=== PATIENT | female | born 1980 ===

== ENCOUNTER 2017-09-23 16:27 | Emergency (ER) | payer SELFPAY ==
[2017-09-23 16:28] VITALS: BMI 30.2
[2017-09-23 16:41] VITALS: O2SAT 97
--- NOTE | 2017-09-23 17:09 | C.PDOC ---
History Of Present Illness 37 year old female presents to ED for evaluation of uri symptoms x 1 day. Pt complaints of non-productive cough, rhinorrhea, nasal congestion, and myalgia. Pt denies any chest pain, shortness of breath, n/v/d, abdominal pain, or any other associated symptoms at this time. Time Seen by Provider: 09/23/17 16:47 Chief Complaint (Nursing): Chest Pain History Per: Patient History/Exam Limitations: no limitations Onset/Duration Of Symptoms: Hrs Current Symptoms Are (Timing): Still Present Past Medical History Reviewed: Historical Data, Nursing Documentation, Vital Signs Vital Signs: Last Vital Signs Temp 99.5 F 09/23/17 16:39 Pulse 96 H 09/23/17 16:39 Resp 20 09/23/17 16:39 BP 129/85 09/23/17 16:39 Pulse Ox 97 09/23/17 18:28 - [facility] Procedures MONITORING NOS (11/08/14) INJECT/INFUSE NEC (11/16/13) LOW CERVICAL (11/08/14) Family History: States: Unknown Family Hx - Social History Hx Alcohol Use: No Hx Substance Use: No - Immunization History Hx Tetanus Toxoid Vaccination: No Hx Influenza Vaccination: No Hx Pneumococcal Vaccination: No Review Of Systems Except As Marked, All Systems Reviewed And Found Negative. Constitutional: Positive for: Other (myalgia). Negative for: Fever, Chills ENT: Positive for: Nose Discharge, Nose Congestion Cardiovascular: Negative for: Chest Pain, Palpitations Respiratory: Positive for: Cough. Negative for: Shortness of Breath Gastrointestinal: Negative for: Nausea, Vomiting, Abdominal Pain, Diarrhea Physical Exam - Physical Exam Appears: Non-toxic, No Acute Distress Skin: Normal Color, Warm, Dry Head: Atraumatic, Normacephalic Eye(s): bilateral: Normal Inspection Ear(s): Bilateral: Normal Nose: Discharge (clear rhinorrhea) Oral Mucosa: Moist Throat: Normal, No Erythema, No Exudate Neck: Normal ROM, Supple Chest: Symmetrical Cardiovascular: Rhythm Regular, No Murmur Respiratory: Normal Breath Sounds, No Rales, No Rhonchi, No Wheezing Gastrointestinal/Abdominal: Soft, No Tenderness Extremity: Normal ROM Neurological/Psych: Oriented x3, Normal Speech ED Course And Treatment O2 Sat by Pulse Oximetry: 97 (RA) Pulse Ox Interpretation: Normal Medical Decision Making Medical Decision Making: EKG, CXR, influenza AB ordered and reviewed. EKG shows NSR at 86bpm with normal intervals and no ST changes. Cxray negative. Patient is positive for influenza. She is well appearing with normal vitals. Pt was given Toradol and Tamiflu. Disposition - Disposition Referrals: [facility] at [facility] [Outside] Disposition: HOME/ ROUTINE Disposition Time: 18:04 Condition: GOOD Additional Instructions: Copious fluids. Motrin or tylenol for pain. Return to ED if condition worsens. Take tamiflu to decrease duration of symptoms. Follow-up with PMD within 2 days Prescriptions: Oseltamivir [Tamiflu] 75 mg PO BID #10 cap Instructions: Oseltamivir (By mouth), Influenza (ED) Forms: [facility] (Faroese), Work Excuse Print Language: PORTUGUESE - Clinical Impression Clinical Impression: Influenza A - Scribe Statement The provider has reviewed the documentation as recorded by the Chanelibe Jennifer Huber All medical record entries made by the Scribe were at my direction and personally dictated by me. I have reviewed the chart and agree that the record accurately reflects my personal performance of the history, physical exam, medical decision making, and the department course for this patient. I have also personally directed, reviewed, and agree with the discharge instructions and disposition.
--- NOTE | 2017-09-23 18:17 | RAD ---
HISTORY: chest pain, congestion COMPARISON: No prior. TECHNIQUE: Chest PA and lateral FINDINGS: LUNGS: No active pulmonary disease. PLEURA: No significant pleural effusion identified. No pneumothorax apparent. CARDIOVASCULAR: Normal. OSSEOUS STRUCTURES: No significant abnormalities. VISUALIZED UPPER ABDOMEN: Normal. OTHER FINDINGS: None. IMPRESSION: No active disease.
[2017-09-23 18:35] VITALS: BP 114/83; PULSE 63; RESP 18; TEMP 98.8
--- NOTE | 2017-09-26 22:22 | CARD ---
APPROVED REPORT EKG Measurement Heart [id number] <Conclusion> Normal sinus rhythm Normal ECG
== END 2017-09-23 18:48 | disposition home or self-care (01) ==
LOC: C.ER 16:27
DX: J09.X2 Influenza due to identified novel influenza A virus with other respiratory manifestations (principal)
CPT/HCPCS: 71020; 87804; 93005; 96372; 99284; J1885

== ENCOUNTER 2017-11-19 16:00 | Emergency (ER) | payer SELFPAY ==
[2017-11-19 16:00] VITALS: BMI 30.2
[2017-11-19 16:07] VITALS: PULSE 72
[2017-11-19 16:46] LABS: HCG,QUALITATIVE URINE NEGATIVE (NEGATIVE)
[2017-11-19 16:55] LABS: SQUAMOUS EPITHIAL 18 /hpf (0-5); URINE BACTERIA RARE (<OCC); URINE BILIRUBIN NEGATIVE (NEGATIVE); URINE BLOOD NEGATIVE (NEGATIVE); URINE CLARITY Hazy (Clear); URINE COLOR Yellow (YELLOW); URINE GLUCOSE (UA) NORMAL (Normal); URINE LEUKOCYTE ESTERASE NEG Leu/uL (Negative); URINE NITRATE NEGATIVE (NEGATIVE); URINE PROTEIN NEGATIVE (NEGATIVE)
--- NOTE | 2017-11-19 17:14 | C.PDOC ---
History Of Present Illness 37 y/o female presents to ED with complaints of lower abdominal pain associated with nausea that began 1 day ago. Denies vomiting, fever, blood in stool or urine. Chief Complaint (Nursing): Abdominal Pain History Per: Patient History/Exam Limitations: no limitations Onset/Duration Of Symptoms: Days (1) Current Symptoms Are (Timing): Still Present Radiation Of Pain To:: None Associated Symptoms: Nausea. denies: Fever, Chills, Vomiting, Diarrhea, Urinary Symptoms Exacerbating Factors: None Alleviating Factors: None Recent travel outside of the [place]: No Abnormal Vaginal Bleeding: No Past Medical History Reviewed: Historical Data, Nursing Documentation, Vital Signs Vital Signs: Last Vital Signs Temp 98.5 F 11/19/17 20:07 Pulse 72 11/19/17 20:07 Resp 18 11/19/17 20:07 BP 118/70 11/19/17 20:07 Pulse Ox 100 11/19/17 20:07 - Medical History PMH: No Chronic Diseases - [facility] Procedures MONITORING NOS (11/08/14) INJECT/INFUSE NEC (11/16/13) LOW CERVICAL (11/08/14) Family History: States: Unknown Family Hx - Social History Hx Alcohol Use: No Hx Substance Use: No - Immunization History Hx Tetanus Toxoid Vaccination: No Hx Influenza Vaccination: No Hx Pneumococcal Vaccination: No Review Of Systems Constitutional: Negative for: Fever, Chills Cardiovascular: Negative for: Chest Pain Respiratory: Negative for: Cough, Shortness of Breath Gastrointestinal: Positive for: Nausea, Abdominal Pain (lower). Negative for: Vomiting, Diarrhea Genitourinary: Negative for: Dysuria, Hematuria Neurological: Negative for: Weakness, Numbness Physical Exam - Physical Exam Appears: Well, Non-toxic Skin: Normal Color, Warm, Dry Head: Atraumatic, Normacephalic Eye(s): bilateral: Normal Inspection Oral Mucosa: Moist Neck: Supple Chest: Symmetrical, No Tenderness Cardiovascular: Rhythm Regular Respiratory: Normal Breath Sounds, No Decreased Breath Sounds, No Rales, No Rhonchi, No Wheezing Gastrointestinal/Abdominal: Bowel Sounds (active), Soft, Tenderness (lower abdomen), No Distention, No Guarding, No Rebound Neurological/Psych: Oriented x3, Normal Speech, Normal Cognition ED Course And Treatment - Laboratory Results Result Diagrams: 11/19/17 17:13 11/19/17 17:13 O2 Sat by Pulse Oximetry: 98 (RA) Pulse Ox Interpretation: Normal - CT Scan/US CT abd/pelvis Other Rad Studies (CT/US): Read By Radiologist, Radiology Report Reviewed CT/US Interpretation: . CT Scan. . . ABD PELVIS IV CONTRAST ONLY Exam Date: 11/19/17. . This imaging exam was performed at [facility]. ADDENDUM. . Addendum created by Erich Campuzano MD on 11/19/2017 7:18:46 PM EST. . IMPRESSION: 1. Involuting or ruptured RIGHT ovarian follicle/cyst. 2. Mild colitis versus underdistention. Clinical correlation is needed. 3. Mild cystitis vs underdistention. Correlate with urinalysis. 4. Equivocal areas of decreased attenuation within kidneys. Correlate with. urinalysis to exclude early pyelonephritis. 5. Adrenal lesion, indeterminate. Recommend further evaluation with. unenhanced abdominal CT or MR. Alternatively, if there is a history of. malignancy, consider PET. 6. Incidental/non-acute findings are described above. Initial report created on 11/19/2017 7:05:36 PM EST. . EXAM: CT Abdomen and Pelvis With Intravenous Contrast. . CLINICAL HISTORY: 37 years old, female; Pain; Abdominal pain; Generalized; Additional info: Lower abdominal pain. . TECHNIQUE: Axial computed tomography images of the abdomen and pelvis with intravenous. contrast. All CT scans at this facility use one or more dose reduction. techniques, viz.: automated exposure control; ma/kV adjustment per patient size. (including targeted exams where dose is matched to indication; i.e. head); or. iterative reconstruction technique. Coronal and sagittal reformatted images were created and reviewed. . CONTRAST: 100 mL of [id number] administered intravenously. . COMPARISON: No relevant prior studies available. . FINDINGS: Lower thorax: No acute findings. . ABDOMEN: Liver: Unremarkable. No mass. Gallbladder and bile ducts: No calcified stones. No ductal dilation. Pancreas: No ductal dilation. No mass. Spleen: No splenomegaly. Adrenals: 1.0 x 1.1 x 1.2 cm lesion within LEFT adrenal gland, indeterminate. by CT criteria. Kidneys and ureters: Few equivocal subtle peripheral minimal areas of. decreased attenuation within kidneys. No hydronephrosis. Stomach and bowel: Segmental areas of mild mural thickening vs. underdistention of descending, sigmoid colon. No associated inflammatory. stranding. No obstruction. Appendix: Normal caliber. No inflammation. . PELVIS: Bladder: Borderline bladder wall thickening, 4-5 mm. Incomplete distention,. limiting evaluation. Reproductive: 1.2 x 1.0 x 1.2 cm peripherally enhancing hypodensity with. crenulated margins within RIGHT ovary. . ABDOMEN and PELVIS: Intraperitoneal space: Trace free fluid within pelvis. No free air. Bones/joints: No acute fracture. Soft tissues: Unremarkable. Vasculature: Retroaortic LEFT renal vein. No aneurysm. Lymph nodes: No pathologically enlarged lymph nodes. . IMPRESSION: 1. Involuting or ruptured RIGHT ovarian follicle/cyst. 2. Mild colitis versus underdistention. Clinical correlation is needed. 3. Equivocal areas of decreased attenuation within kidneys. Correlate with. urinalysis to exclude infection. 4. Adrenal lesion, indeterminate. Recommend further evaluation with. unenhanced abdominal CT or MR. Alternatively, if there is a history of. malignancy, consider PET. 5. Incidental/non-acute findings are described above. . Addendum Dictated By: Erich Campuzano MD Addendum Dictated Date Time:11/19/1707/27/1918. Addendum Signed by:Erich Campuzano MD Addendum signed Date Time: 11/19/171917. Addendum Transcribed By: [facility]. Addendum Transcribed Date Time: 11/19/1707/27/1918. . ACYP02/MT. . EXAM: CT Abdomen and Pelvis With Intravenous Contrast. . CLINICAL HISTORY: 37 years old, female; Pain; Abdominal pain; Generalized; Additional info: Lower abdominal pain. . TECHNIQUE: Axial computed tomography images of the abdomen and pelvis with intravenous. contrast. All CT scans at this facility use one or more dose reduction. techniques, viz.: automated exposure control; ma/kV adjustment per patient size. (including targeted exams where dose is matched to indication; i.e. head); or. iterative reconstruction technique. Coronal and sagittal reformatted images were created and reviewed. . CONTRAST: 100 mL of [id number] administered intravenously. . COMPARISON: No relevant prior studies available. . FINDINGS: Lower thorax: No acute findings. . ABDOMEN: Liver: Unremarkable. No mass. Gallbladder and bile ducts: No calcified stones. No ductal dilation. Pancreas: No ductal dilation. No mass. Spleen: No splenomegaly. Adrenals: 1.0 x 1.1 x 1.2 cm lesion within LEFT adrenal gland, indeterminate. by CT criteria. Kidneys and ureters: Few equivocal subtle peripheral minimal areas of. decreased attenuation within kidneys. No hydronephrosis. Stomach and bowel: Segmental areas of mild mural thickening vs. underdistention of descending, sigmoid colon. No associated inflammatory. stranding. No obstruction. Appendix: Normal caliber. No inflammation. . PELVIS: Bladder: Borderline bladder wall thickening, 4-5 mm. Incomplete distention,. limiting evaluation. Reproductive: 1.2 x 1.0 x 1.2 cm peripherally enhancing hypodensity with. crenulated margins within RIGHT ovary. . ABDOMEN and PELVIS: Intraperitoneal space: Trace free fluid within pelvis. No free air. Bones/joints: No acute fracture. Soft tissues: Unremarkable. Vasculature: Retroaortic LEFT renal vein. No aneurysm. Lymph nodes: No pathologically enlarged lymph nodes. . IMPRESSION: 1. Involuting or ruptured RIGHT ovarian follicle/cyst. 2. Mild colitis versus underdistention. Clinical correlation is needed. 3. Equivocal areas of decreased attenuation within kidneys. Correlate with. urinalysis to exclude infection. 4. Adrenal lesion, indeterminate. Recommend further evaluation with. unenhanced abdominal CT or MR. Alternatively, if there is a history of. malignancy, consider PET. 5. Incidental/non-acute findings are described above. Medical Decision Making Medical Decision Making: Ordered CT abdomen & pelvis, blood work, and urinalysis. Disposition - Disposition Referrals: [facility] Norbert Segundo, [Non-Staff] - Disposition: HOME/ ROUTINE Disposition Time: 20:00 Condition: GOOD Additional Instructions: Thank you for letting us take care of you today. The emergency medical care you received today was directed at your acute symptoms. If you were prescribed any medication, please fill it and take as directed. It may take several days for your symptoms to resolve. Return to the Emergency Department if your symptoms worsen, do not improve, or if you have any other problems. Please contact your doctor or call one of the physicians/clinics you have been referred to that are listed on the Patient Visit Information form that is included in your discharge packet. Bring any paperwork you were given at discharge with you along with any medications you are taking to your follow up visit. Our treatment cannot replace ongoing medical care by a primary care provider (PCP) outside of the emergency department. Thank you for allowing the [facility] team to be part of your care today. Follow up with your doctor next week for re-evaluation and further management. Shannan por dejarnos atenderlo hoy. La atencin mdica de emergencia que recibi hoy estaba dirigida a rolanda sntomas agudos. Si le prescribieron algn medicamento, llnelo y tome segn las indicaciones. Rolanda sntomas pueden tardar varios foster en resolverse. Regrese al Departamento de Emergencia si rolanda s ntomas empeoran, no mejoran o si tiene algn otro problema. Comunquese con pedersen mdico o llame a kenneth de los mdicos / clnicas a los que felix sido referido que figura en el formulario de Informacin de visita del paciente que se incluye en pedersen paquete de maida. Traiga todos los documentos que recibi al momento del maida junto con los medicamentos que est tomando en pedersen visita de seguimiento. Nuestro tratamiento no puede reemplazar la atencin mdica en curso por parte de un proveedor de atencin primaria (PCP) fuera del departamento de emergencias. Shannan por permitir que el equipo de [facility] sea parte de pedersen cuidado hoy. Kenny un seguimiento con pedersen mdico la prxima semana para danielle nueva evaluacin y danielle mayor administracin. Prescriptions: Ibuprofen [Motrin] 600 mg PO Q6 PRN #20 tab PRN Reason: Pain, Moderate (4-7) Instructions: Ovarian Cyst (ED) Forms: Gen Discharge Inst Yoruba Print Language: LAO - Clinical Impression Clinical Impression: Ovarian cyst - Scribe Statement The provider has reviewed the documentation as recorded by the Scribe Darin Moyer All medical record entries made by the Scribe were at my direction and personally dictated by me. I have reviewed the chart and agree that the record accurately reflects my personal performance of the history, physical exam, medical decision making, and the department course for this patient. I have also personally directed, reviewed, and agree with the discharge instructions and disposition.
[2017-11-19 17:16] LABS: BASO % 0.2 % (0.0-2.0); EOS # 0.1 K/uL (0.0-0.7); EOS % 2.1 % (0.0-4.0); HEMOGLOBIN 10.1 g/dL (11.0-16.0); LYMPH # 1.3 K/uL (1.0-4.3); LYMPH % 25.8 % (20.0-40.0); MEAN CELL VOLUME 81.9 fL (81.0-99.0); MEAN CORPUSCULAR HEMOGLOBIN 26.8 pg (27.0-31.0); MEAN CORPUSCULAR HGB CONC 32.7 g/dL (33.0-37.0); MEAN PLATELET VOLUME 7.9 fL (7.2-11.7); MONO # 0.4 K/uL (0.0-0.8); MONO % 8.3 % (0.0-10.0); NEUT # 3.2 K/uL (1.8-7.0); NEUT % 63.6 % (50.0-75.0); RBC 3.76 Mil/uL (3.80-5.20); RED CELL DISTRIBUTION WIDTH 15.6 % (11.5-14.5); WHITE BLOOD COUNT 5.1 K/uL (4.8-10.8)
[2017-11-19 17:33] LABS: ALB/GLOB RATIO 1.1 (1.0-2.1); ALBUMIN 3.9 g/dL (3.5-5.0); ALT/SGPT 26 U/L (9-52); AST/SGOT 25 U/L (14-36); BLOOD UREA NITROGEN 13 mg/dL (7-17); CALCIUM 8.3 mg/dl (8.6-10.4); GFR AFRICAN-AMERICAN > 60; GFR NON-AFRICAN AMERICAN > 60; LIPASE 57 U/L (23-300)
[2017-11-19] MEDS ORDERED: Iodixanol 320 MG/ML 100 ML BOTTLE IV ONE (17:47)
--- NOTE | 2017-11-19 19:05 | CT ---
EXAM: CT Abdomen and Pelvis With Intravenous Contrast CLINICAL HISTORY: 37 years old, female; Pain; Abdominal pain; Generalized; Additional info: Lower abdominal pain TECHNIQUE: Axial computed tomography images of the abdomen and pelvis with intravenous contrast. All CT scans at this facility use one or more dose reduction techniques, viz.: automated exposure control; ma/kV adjustment per patient size (including targeted exams where dose is matched to indication; i.e. head); or iterative reconstruction technique. Coronal and sagittal reformatted images were created and reviewed. CONTRAST: 100 mL of [id number] administered intravenously. COMPARISON: No relevant prior studies available. FINDINGS: Lower thorax: No acute findings. ABDOMEN: Liver: Unremarkable. No mass. Gallbladder and bile ducts: No calcified stones. No ductal dilation. Pancreas: No ductal dilation. No mass. Spleen: No splenomegaly. Adrenals: 1.0 x 1.1 x 1.2 cm lesion within LEFT adrenal gland, indeterminate by CT criteria. Kidneys and ureters: Few equivocal subtle peripheral minimal areas of decreased attenuation within kidneys. No hydronephrosis. Stomach and bowel: Segmental areas of mild mural thickening vs underdistention of descending, sigmoid colon. No associated inflammatory stranding. No obstruction. Appendix: Normal caliber. No inflammation. PELVIS: Bladder: Borderline bladder wall thickening, 4-5 mm. Incomplete distention, limiting evaluation. Reproductive: 1.2 x 1.0 x 1.2 cm peripherally enhancing hypodensity with crenulated margins within RIGHT ovary. ABDOMEN and PELVIS: Intraperitoneal space: Trace free fluid within pelvis. No free air. Bones/joints: No acute fracture. Soft tissues: Unremarkable. Vasculature: Retroaortic LEFT renal vein. No aneurysm. Lymph nodes: No pathologically enlarged lymph nodes. IMPRESSION: 1. Involuting or ruptured RIGHT ovarian follicle/cyst. 2. Mild colitis versus underdistention. Clinical correlation is needed. 3. Equivocal areas of decreased attenuation within kidneys. Correlate with urinalysis to exclude infection. 4. Adrenal lesion, indeterminate. Recommend further evaluation with unenhanced abdominal CT or MR. Alternatively, if there is a history of malignancy, consider PET. 5. Incidental/non-acute findings are described above.
[2017-11-19 20:10] VITALS: BP 118/70; RESP 18; TEMP 98.5
[2017-11-20 00:32] VITALS: O2SAT 98
== END 2017-11-19 20:10 | disposition home or self-care (01) ==
LOC: C.ER 16:00
DX: N83.209 Unspecified ovarian cyst, unspecified side (principal)
CPT/HCPCS: 74177; 80053; 81001; 83690; 84703; 85025; 99285; Q9967

== ENCOUNTER 2018-04-04 07:06 | Emergency (ER) | payer OTHER ==
[2018-04-04 07:19] VITALS: BMI 27.3
[2018-04-04 07:23] VITALS: BP 128/88; PULSE 86; RESP 16; TEMP 99.1; O2SAT 99
[2018-04-04] MEDS ORDERED: Amoxicillin-Clav 875-125 mg Tab PO STA (08:22)
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
--- NOTE | 2018-04-04 08:52 | RAD ---
PROCEDURE: Radiographs of Nasal Bones HISTORY: injury COMPARISON: None available. TECHNIQUE: Frontal and lateral radiographs of the nasal bones. FINDINGS: Positive fracture of nasal bones visualized. 1 mm or less depression IMPRESSION: Nasal bone fracture; 1 mm or less depression. Comments: Study marked for PA review.
[2018-04-04] MEDS ORDERED: Amoxicillin-Clav 875-125 mg Tab PO ONE (08:53)
== END 2018-04-04 08:58 | disposition home or self-care (01) ==
LOC: C.ER 07:06
DX: S02.2XXA Fracture of nasal bones, initial encounter for closed fracture (principal); S80.01XA Contusion of right knee, initial encounter; S80.02XA Contusion of left knee, initial encounter; V19.9XXA Pedal cyclist (driver) (passenger) injured in unspecified traffic accident, initial encounter; Y93.55 Activity, bike riding